=== PATIENT | female | born 1955 | race African-American/Black ===

== ENCOUNTER 2025-07-16 19:10 | Emergency (ER) | payer MEDICARE, MEDICAID ==
[~2025-07-16] VITALS: Ht 160 cm; Wt 75.0 kg
[~2025-07-16 19:10] MED LIST: ALPR0.25; CAR3125T; FLUT100M7; FURO1TAB33; INSLISPI; INSULIN LANTUS; LISI2.5T47; METF-372; POTA99TA13; ZOLP5TAB
[2025-07-16 19:15] VITALS: BP 114/66; PULSE 100; RESP 16; TEMP 97.6; O2SAT 100
--- NOTE | 2025-07-16 20:17 | DVH ---
COMPUTERIZED TOMOGRAPHY FACE NONCONTRAST REASON FOR EXAM: STATUS POST FALL LARGE HEMATOMA RIGHT SIDE OF FOREHEAD COMPARISON: None TECHNIQUE: Thin axial slices of the face were obtained without intravenous contrast. 2D coronal and sagittal reformatted images were provided. Radiation optimization: All CT scans at this facility use at least one of these dose optimization techniques: Automated exposure control mA and/or kV adjustment per patient size (includes targeted exams where dose is matched to clinical indication) or iterative reconstruction. RADIATION DOSE: CTDI: 66.97 mGy DLP: 1332.62 mGy-cm FINDINGS: The salivary glands are within normal limits and grossly symmetric. The patient is status post bilateral lens surgeries. The globes appear otherwise intact. There is no abnormal thickening of the extraorbital muscles. There is no retrobulbar hematoma. There is focal swelling of the subcutaneous tissues lateral to the right orbit. There is no subcutaneous air to suggest laceration. There is frothy material in the right sphenoid sinus. The paranasal sinuses are otherwise clear. No facial bone fracture is identified. IMPRESSION: Focal swelling of the subcutaneous tissues lateral to the right orbit. No intraorbital abnormality identified. No facial bone fracture identified. Frothy material in the right sphenoid sinus. Correlate clinically for acute sinusitis.
--- NOTE | 2025-07-16 20:40 | ED.PDOC ---
Agnes. trauma (HPI) HPI Comments 70-YEAR-OLD FEMALE PRESENTS TO THE ED CHIEF COMPLAINT STATUS POST FALL. PATIENT REPORTS HEMATOMA WITH SWELLING TO RIGHT SIDE HEAD/EYEBROW S/P MISSING A STEP ON HER STAIRS. PT REPORTS DIZZINESS AFTER THE FALL, NO LOC. DENIES VISION CHANGES, DIFFICULTY BREATHING, SHORTNESS OF BREATH, CHEST PAIN, ABDOMINAL PAIN, NECK PAIN, BACK PAIN, NAUSEA OR VOMITING. Chief Complaint: Head Injury Time Seen by MD: 19:19 Reviewed notes: Nurses Notes, Medications, Allergies Allergies: Coded Allergies: Gabapentin (Verified Allergy, Unknown, 07/16/25) Hydrocodone (Verified Allergy, Unknown, 07/16/25) Home Meds Reported Medications Zolpidem Tartrate (Ambien) 5 Mg Tab 11/06/10 Metformin Hydrochloride (Metformin Hcl) 1,000 Mg Tab, BID 11/06/10 [Insulin Lantus] No Conflict Check 11/06/10 Insulin Lispro (Human) (Humalog) 100 Mg/Ml Inj 11/06/10 Alprazolam (Xanax) 0.25 Mg Tb 11/06/10 Potassium (Chelated Potassium) 99 Mg Tab 11/06/10 Fluticasone-Salmeterol (Advair Diskus) 100/50 Mis 11/06/10 Lisinopril (Lisinopril) 2.5 Mg Tab 11/06/10 Furosemide (Lasix) 20 Mg Tb 11/06/10 Carvedilol (Coreg) 3.125 Mg Tab 11/06/10 Information Source: Patient Mode of Arrival: Ambulatory Past Medical History PAST MEDICAL HISTORY: Denies Surgical History: Denies all surgeries DRAFTER DIRECTIONAL SURVEY History: No Pertinent DRAFTER DIRECTIONAL SURVEY History Family History Family History: Unknown Social History Smoker: Non-Smoker Alcohol: Denies ETOH Use Drugs: Denies Drug Use All Other Systems: Reviewed and Negative (SEE HPI) Physical Exam General Appearance: No Apparent Distress, Normal HEENT: Head (HEMATOMA ABOVE RIGHT EYE ON EYEBROW NO NOTED ABRASIONS OR LACERATIONS NO NOTED BLEEDING), Pharynx Normal, TMs Normal Neck: Full Range of Motion, Non-Tender Respiratory: Chest Non-Tender, Lungs Clear, No Respiratory Distress, Normal Breath Sounds Cardiovascular: No Edema, No JVD, No Murmur, No Gallop, Normal Peripheral Pulses, Regular Rate/Rhythm Breast Exam: Deferred Gastrointestinal: No Organomegaly, Non Tender, No Pulsatile Mass, Normal Bowel Sounds, Soft Genitalia: Deferred Pelvic: Deferred Rectal: Deferred Extremities: Normal capillary refill, Normal range of motion, Non-tender, No pedal edema Musculoskeletal : Apperance: Normal Neurologic: Alert, No Motor Deficits, Normal Affect, Normal Mood, No Sensory Deficits Cerebellar Function: Normal Reflexes: NOT DONE Skin: Dry, Normal Color, Warm, Wounds (SUPERFICIAL ABRASION OVER RIGHT KNEE NO TENDERNESS ON PALPATION STRENGTH SENSORY AND MOTION INTACT NO NOTED EDEMA OR BLEEDING) Lymphatic: No Adenopathy Was a procedure done? Was a procedure done?: No Differential Diagnosis Multiple Trauma: Closed Head Injury, Contusion, Hematoma X-Ray, Labs, Meds, VS Vital Signs Date Time Temp Pulse Resp B/P (MAP) Pulse Ox O2 Delivery O2 Flow Rate FiO2 07/16/25 19:15 97.6 100 16 114/66 100 97.6 X-Ray, Labs, Meds, VS Comment CT maxillofacial shows no acute fractures. Likely contusion advised on ice and anti-inflammatory medication. Advised to rest increase p.o. fluids with electrolytes. Follow up with her PCP in 2-3 days as necessary ER return precautions given patient indicates understanding agrees with discharge plan of care. Images Reviewed?: Images reviewed and evaluated by me Time of 1ST Reevaluation: 19:19 Reevaluation 1ST: Unchanged Time of 2ND Reevaluation: 20:38 Reevaluation 2ND: Improved Patient Education/Counseling: Diagnosis, Treatment, Need For Follow Up Family Education/Counseling: No Family Present Departure 1 Departure Time of Disposition: 20:38 Impression: Primary Impression: Traumatic hematoma of right eyebrow Qualified Codes: S00.11XA - Contusion of right eyelid and periocular area, initial encounter Additional Impression: Abrasion, right knee, initial encounter Disposition: HOME / SELF CARE / HOMELESS Condition: Stable Discharged With: Other (DAUGHTER) Critical Care Note Critical Care Time?: No Stability Stability form required: JIMBO Matos Jul 16, 2025 20:40
== END 2025-07-16 20:56 | disposition home or self-care (01) ==
LOC: ER 19:10
DX: S00.11XA Contusion of right eyelid and periocular area, initial encounter (principal); S80.211A Abrasion, right knee, initial encounter; Z79.899 Other long term (current) drug therapy; Z88.8 Allergy status to other drugs, medicaments and biological substances; Z88.5 Allergy status to narcotic agent; Z79.84 Long term (current) use of oral hypoglycemic drugs; Z79.51 Long term (current) use of inhaled steroids; W19.XXXA Unspecified fall, initial encounter; Y93.89 Activity, other specified; Y92.89 Other specified places as the place of occurrence of the external cause; Y99.8 Other external cause status
CPT/HCPCS: 70486